=== PATIENT | male | born 1945 | race Caucasian/White ===

== ENCOUNTER 2024-04-19 00:52 | Emergency (ER) | payer MEDICARE, BC ==
[~2024-04-19] VITALS: Ht 188 cm; Wt 89.4 kg
[2024-04-19 02:02] LABS: BASO # 0.1 10^3/uL (0.0-0.2); EOS # 0.3 10^3/uL (0.0-0.5); EOS % 3.3 % (0.0-3.0); HEMATOCRIT 37.3 % (42.0-52.0); HEMOGLOBIN 12.8 g/dl (13.5-17.5); LYMPH % 22.9 % (24.0-44.0); MEAN CORPUSCULAR HEMOGLOBIN 32.7 pg (27.0-33.0); MEAN CORPUSCULAR HGB CONC 34.3 g/dl (32.0-36.5); MEAN CORPUSCULAR VOLUME 95.4 fl (80.0-96.0); MONO # 0.6 10^3/uL (0.0-0.8); MONO % 7.3 % (2.0-8.0); NEUTROPHILS # 5.6 10^3/uL (1.5-8.5); NEUTROPHILS % 65.3 % (36.0-66.0); PLATELET COUNT, AUTOMATED 222 10^3/uL (150-450); RED BLOOD COUNT 3.91 10^6/uL (4.30-6.10); WHITE BLOOD COUNT 8.6 10^3/uL (4.0-10.0)
[2024-04-19 02:19] LABS: LIPASE 47 U/L (12-53)
[2024-04-19 02:24] LABS: ALBUMIN 3.7 G/DL (3.2-5.2); ALKALINE PHOSPHATASE 49 U/L (46-116); ALT/SGPT 17 U/L (7.0-40); AST/SGOT 13 U/L (<34); BILIRUBIN,DIRECT < 0.1 MG/DL (<0.4); BILIRUBIN,TOTAL 0.4 MG/DL (0.3-1.2); TOTAL PROTEIN 5.9 G/DL (5.7-8.2)
[2024-04-19] MEDS: NS 1,000 ML IV ONE (03:00)
[2024-04-19] MEDS: PANTOPRAZOLE 40MG VIAL IV ONE (03:00)
[2024-04-19] MEDS: SUCRALFATE SUSP 1GM/10ML UD PO ONE (03:02)
[2024-04-19] MEDS: GASTROGRAFIN SOLUTION 30ML PO SCH (03:11)
[2024-04-19 03:36] LABS: BLOOD UREA NITROGEN 28 MG/DL (9-23); CALCIUM LEVEL 9.3 MG/DL (8.3-10.6); CARBON DIOXIDE LEVEL 24 MMOL/L (20-31); CHLORIDE LEVEL 108 MMOL/L (98-107); CREATININE FOR GFR 1.05 MG/DL (0.70-1.30); GLOMERULAR FILTRATION RATE > 60.0 (>42); GLUCOSE, FASTING 141 MG/DL (74-106); POTASSIUM SERUM 4.7 MMOL/L (3.5-5.1); SODIUM LEVEL 138 MMOL/L (136-145)
[2024-04-19] MEDS ORDERED: ISOVUE-370 76% 100ML VIAL As Ordered ONE (04:34)
[2024-04-19 05:55] VITALS: BP 120/59; TEMP 97.9; O2SAT 99
[2024-04-19] MEDS ORDERED: CARA1TAB6 PO (06:16)
[2024-04-19] MEDS ORDERED: PROT1TAB2 PO (06:16)
== END 2024-04-19 06:25 | disposition home or self-care (01) ==
LOC: M ED 00:52
DX: K29.70 Gastritis, unspecified, without bleeding (principal); I25.2 Old myocardial infarction; Z79.899 Other long term (current) drug therapy
CPT/HCPCS: 74177; 80048; 80076; 83690; 85025; 86850; 86900; 86901; 93005; 96374; 99284; C9113; Q9963; Q9967